=== PATIENT | female | born 1975 ===

== ENCOUNTER 2016-08-20 00:32 | Emergency (ER) | payer OTHER ==
[2016-08-20 00:42] VITALS: RESP 18; TEMP 97.9; BMI 35.6
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
[2016-08-20 02:12] LABS: URINE BILIRUBIN NEGATIVE (NEGATIVE); URINE BLOOD MODERATE (NEGATIVE); URINE GLUCOSE (UA) NEGATIVE (NEGATIVE); URINE KETONE NEGATIVE (NEGATIVE); URINE LEUKOCYTE ESTERASE NEGATIVE Leu/uL (NEGATIVE); URINE PROTEIN NEGATIVE mg/dL (<30 mg/dL); URINE UROBILINOGEN 0.2 E.U./dL (<1 E.U./dL)
[2016-08-20 02:26] LABS: URINE APPEARANCE SL CLOUDY (CLEAR); URINE BACTERIA RARE (NEG); URINE COLOR YELLOW (YELLOW); URINE RBC 0 - 2 /hpf (0-2); URINE WBC 0 - 2 /hpf (0-6)
[2016-08-20 02:57] VITALS: BP 146/80; PULSE 92; O2SAT 98
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
== END 2016-08-20 03:00 | disposition home or self-care (01) ==
LOC: ED 00:32
DX: S20.211A Contusion of right front wall of thorax, initial encounter (principal); V09.20XA Pedestrian injured in traffic accident involving unspecified motor vehicles, initial encounter; Y92.410 Unspecified street and highway as the place of occurrence of the external cause
CPT/HCPCS: 71250; 81001; 96372; 99284; J1885

== ENCOUNTER 2016-08-23 15:55 | Emergency (ER) | payer OTHER ==
[2016-08-23 15:56] VITALS: BMI 35.6
[2016-08-23 16:13] VITALS: TEMP 98.7
[2016-08-23] MEDS ORDERED: Oxycodone/Acetaminophen 5/325 mg Tab PO STA (16:15)
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
[2016-08-23 18:32] VITALS: BP 129/74; PULSE 92; RESP 14; O2SAT 100
--- NOTE | 2016-08-23 21:37 | CARD ---
APPROVED REPORT EKG Measurement Heart [id number] <Conclusion> Sinus tachycardia Otherwise normal ECG
--- NOTE | 2016-08-24 09:13 | RAD ---
PROCEDURE: Radiographs of the chest and bilateral ribs HISTORY: right rib pain r/o atelectasis r/o fx COMPARISON: None available. TECHNIQUE: Frontal radiograph of the chest and multiple oblique radiographs of the bilateral ribs were obtained. FINDINGS: RIGHT RIBS: No fracture or focal lesion visualized. LEFT RIBS: No fracture or focal lesion visualized. LUNGS: Clear. PLEURA: No pneumothorax or pleural fluid. CARDIOVASCULAR: Normal sized heart. No pulmonary vascular congestion. OTHER FINDINGS: None. IMPRESSION: Unremarkable radiographs of the chest and bilateral ribs. No rib fracture.
== END 2016-08-23 17:55 | disposition home or self-care (01) ==
LOC: ED 15:55
DX: S20.211A Contusion of right front wall of thorax, initial encounter (principal); V49.59XA Passenger injured in collision with other motor vehicles in traffic accident, initial encounter; Y92.410 Unspecified street and highway as the place of occurrence of the external cause
CPT/HCPCS: 71111; 93005; 96372; 99284; J1885